=== PATIENT | female | born 1975 | race Caucasian/White ===

== ENCOUNTER 2019-04-13 14:51 | Outpatient (CLI) | payer OTHER ==
--- NOTE | 2019-04-13 16:12 | ULT ---
Pelvic sonogram transabdominal imaging with duplex evaluation HISTORY: Pelvic pain and bloating. FINDINGS: Urinary bladder is unremarkable. Uterus slightly retroverted. 7.4 cm. No focal masses. Endo metrium is 1.4 cm. Physiologic amount of free fluid within the pelvis. Right ovary is 3.3 cm and left is 2.9 cm. Each has a normal sonographic appearance with good color an d spectral Doppler flow. IMPRESSION: No significant abnormalities are demonstrated.
== END 2019-04-13 14:52 | disposition home or self-care (01) ==
LOC: SCSULT 14:51
PROVIDERS: ATTEND Obstetrics & Gynecology
DX: R14.0 Abdominal distension (gaseous) (principal)
CPT/HCPCS: 76856; 93976

== ENCOUNTER 2020-01-29 11:23 | Outpatient (CLI) | payer BC ==
--- NOTE | 2020-01-29 11:58 | CT ---
CT Brain WO Con: 01/29/2020 12:00 AM CLINICAL HISTORY: History of migraine headaches; past 3 months the migraine headaches have become mor e severe; patient is having right visual disturbance and left severe occipital and temporal head pain. IMAGING TECHNIQUE: Multiple CT images were obtained of the brain without IV contrast. COMPARISON: None. FINDINGS: BRAIN: Evidence of acute infarct: None. Evidence of chronic ischemic change:None. Evidence of intracranial hemorrhage: None. Evidence of midline shift: Third ventricle and septum pellucidum are midline. Ventricles: Normal. No hydrocephalus. SKULL: Intact. VISUALIZED PARANASAL SINUSES: Clear. MASTOID AIR CELLS: Clear. EXTRACRANIAL SOFT TISSUES: Normal. IMPRESSION: No acute intracranial abnormality. If the patient's clinical symptoms persist, further interrogation with an MRI of the brain is recomme nded.
== END 2020-01-29 11:24 | disposition home or self-care (01) ==
LOC: SCSCT 11:23
PROVIDERS: ATTEND Family Medicine
DX: G43.909 Migraine, unspecified, not intractable, without status migrainosus (principal)
CPT/HCPCS: 70450

== ENCOUNTER 2021-05-11 14:51 | Outpatient (CLI) | payer OTHER | END 2021-05-11 14:52 | disposition home or self-care (01) | LOC: BICULT 14:51 | PROVIDERS: ATTEND Internal Medicine Endocrinology, Diabetes & Metabolism | DX: E06.3 Autoimmune thyroiditis (principal); E07.89 Other specified disorders of thyroid; E55.9 Vitamin D deficiency, unspecified; N91.2 Amenorrhea, unspecified; R51.9 Headache, unspecified; R03.0 Elevated blood-pressure reading, without diagnosis of hypertension; R53.83 Other fatigue | CPT/HCPCS: 76536 ==

== ENCOUNTER 2024-02-04 10:07 | Outpatient (CLI) | payer BC | END 2024-02-04 10:08 | disposition home or self-care (01) | LOC: SCSMRI 10:07 | PROVIDERS: ATTEND Family Medicine | DX: G43.101 Migraine with aura, not intractable, with status migrainosus (principal) | CPT/HCPCS: 70553 ==